=== PATIENT | female | born 1955 | race Caucasian/White ===

== ENCOUNTER 2016-04-12 08:00 | Day surgery (SDC) | payer OTHER ==
[~2016-04-12] VITALS: Ht 160 cm; Wt 93.9 kg
[2016-04-12] MEDS ORDERED: IOHEXOL-300 100 ML BOTTLE ONE (09:01)
[2016-04-12] MEDS ORDERED: LIDOCAINE HCL 1% 20ML VIAL (Pyxis) INJ ONE (09:02)
[2016-04-12] MEDS ORDERED: FENTANYL CITRATE/PF 50MCG/ML 2ML VIAL ONE (09:17)
[2016-04-12] MEDS ORDERED: MIDAZOLAM HCL 2 MG/2 ML VIAL ONE (09:17)
[2016-04-12] MEDS ORDERED: HYDROMORPHONE HCL/PF 2MG/ML (OR) ONE (09:44)
[2016-04-12] MEDS ORDERED: LISI-604 PO (10:02)
[2016-04-12] MEDS ORDERED: CHOL20004 PO (10:02)
[2016-04-12] MEDS ORDERED: ASPI-1035 PO (10:02)
[2016-04-12] MEDS ORDERED: EZET1TAB7 PO (10:02)
[2016-04-12] MEDS ORDERED: SERT50TA PO (10:02)
[2016-04-12] MEDS ORDERED: TOPXL5 PO (10:02)
[2016-04-12] MEDS ORDERED: ARIM1 PO (10:02)
== END 2016-04-12 16:20 | disposition home or self-care (01) ==
LOC: CCL 08:00
PROVIDERS: ATTEND Specialist
DX: I25.10 Atherosclerotic heart disease of native coronary artery without angina pectoris (principal)
CPT/HCPCS: 93458; C1760; C1769; C1887; C1893; J1170; J1644; J2250; J3010; J3490; Q9967